=== PATIENT | female | born 1990 | race Caucasian/White ===

== ENCOUNTER 2019-08-05 15:22 | Emergency (ER) | payer MEDICAID, SELFPAY ==
[2019-08-05 15:31] VITALS: BP 116/81; PULSE 90; RESP 18; TEMP 36.9; O2SAT 100
--- NOTE | 2019-08-05 15:33 | ED.URI ---
HPI - URI/Sore Throat General Chief Complaint: Upper Respiratory Infection Stated Complaint: drainage/SCHMIDT/congestion Time Seen by Provider: 08/05/19 15:32 Source: patient and RN notes reviewed Mode of arrival: ambulatory Limitations: no limitations History of Present Illness HPI Narrative: 29-year-old female presents with concern for 1 week history of sinus pressure, sinus congestion. Reports she had sinus surgery at the end of June, was seen by her ENT approximately 2 weeks ago, he told her she could be developing an infection, did not put her on antibiotics that time; he told her to follow-up, reports she called and was unable to get an appointment. She reports facial pain, sinus pressure, headache reports taking Claritin and 3 days of Afrin with no relief. MD elicited complaint: nasal congestion Related Data Home Medications Medication Instructions Recorded Confirmed dextroamphetamine-amphetamine 10 mg PO BID 06/24/19 08/05/19 [Adderall] multivitamin 1 tablet PO DAILY 06/24/19 08/05/19 [id number] 50 See Rx Instructions PO Q4H PRN 08/01/19 08/05/19 mg-325 mg-40 mg tablet hydrocodone-acetaminophen 1 tablet Q4-6H PRN 08/05/19 08/05/19 ketorolac 10 mg BID 08/05/19 08/05/19 Allergies Allergy/AdvReac Type Severity Reaction Status Date / Time psyllium Allergy Mild Hives / Verified 07/08/19 09:07 Red Face Sulfa (Sulfonamide AdvReac Mild N/V Verified 07/08/19 10:57 Antibiotics) trimethoprim AdvReac Mild N/V Verified 07/08/19 10:57 Review of Systems Review of Systems: Narrative: CONSTITUTIONAL: Reports malaise. Denies chills, sweats, or fever. EYES: Denies visual changes, redness, or discharge. ENT: Reports rhinorrhea, congestion, sinus pain. Denies otalgia and sore throat. CARDIOVASCULAR: Denies chest pain, palpitations, or edema. RESPIRATORY: Denies cough dyspnea. GASTROINTESTINAL: Denies abdominal pain, nausea, vomiting, diarrhea SKIN: Denies rash or itching. MUSCULOSKELETAL: Denies myalgia. NEUROLOGIC: Reports headache. All systems reviewed & are unremarkable except as noted in HPI and below PMFSH Past Medical History Medical History (Updated 08/05/19 @ 15:41 by Kari Aquino NP) Anxiety Asthma Left ovarian cyst Migraine UTI (urinary tract infection) Surgical History Surgical History (Updated 07/22/19 @ 16:24 by Gala Skelton NP) H/O right wrist surgery H/O sinus surgery Previous section Social History Social History Smoking status: Current every day smoker Alcohol intake: unknown Gender identity (if verbalized by the patient): Female Comments At time of signature, agree with nursing past medical, surgical, social and family history. There is no relevant family history pertinent to the presenting complaint Exam Narrative: Exam Narrative: GENERAL: Well-appearing, well-nourished, and in no acute distress. HEAD: Normocephalic, atraumatic. EYES: PERRLA, conjunctivae clear, and EOMI. ENT: Nares clear, turbinates edematous and erythematous, sinus tenderness. Mucous membranes moist. TM pearly noriega with dull light reflex bilaterally; no tragal tenderness. Oropharynx erythematous without lesions. Tonsils not enlarged and without exudate, no drooling, no hoarseness, no trismus. NECK: Supple. No lymphadenopathy CHEST: Clear to auscultation, breath sounds equal. No wheezing, rhonchi, rales, or stridor. No respiratory distress, speaks in full sentences. HEART: Regular rate and rhythm. No murmur heard. Normal peripheral pulses. SKIN: Warm, dry, no rash. NEURO: Alert and oriented x3. PSYCH: Normal mood and affect Course Course Emergency Course: Patient is aware of diagnosis, understands and agrees to treatment plan. Anticipatory guidance given. Patient agrees to follow-up as directed and is aware of reasons to seek care at the emergency department. Portions of this record may have been created with [employer]
== END 2019-08-05 15:44 | disposition home or self-care (01) ==
PROVIDERS: Emergency Provider Nurse Practitioner
DX: J01.90 Acute sinusitis, unspecified (principal); J45.909 Unspecified asthma, uncomplicated
CPT/HCPCS: 99213; G0463

== ENCOUNTER 2021-01-06 17:07 | Outpatient (CLI) | payer OTHER, SELFPAY ==
[2021-01-06 18:01] LABS: Beta HCG Quantitative < 2.39 mIU/ML
== END 2021-01-06 17:08 | disposition home or self-care (01) ==
PROVIDERS: Visit Provider Obstetrics & Gynecology
DX: N92.6 Irregular menstruation, unspecified (principal)
CPT/HCPCS: 36415; 84702

== ENCOUNTER 2021-12-18 08:33 | Outpatient (CLI) | payer OTHER, SELFPAY ==
--- NOTE | ~2021-12-18 | MR_ITS ---
EXAMINATION: MR lumbar spine wo con DATE: 12/18/2021 09:14 INDICATION: M54.50 - Low back pain, unspecified . Fall down a flight of stairs one year ago. Three-mo nth history of low back pain radiating into the right leg with toe tingling. TECHNIQUE: Magnetic resonance imaging (MRI) of the lumbar spine was performed without intravenous con trast. Sequences included sagittal T2-weighted FSE, sagittal T2-weighted FS FSE, sagittal T1-weighted FSE, and axial T2-weighted FSE. COMPARISON: X-ray lumbar spine 10/18/2012. FINDINGS: The last fully formed and hydrated disc is designated L5-S1. The marrow signal is benign an d homogenous. Conus terminates at L1-2. Disc height loss and dehydration at L5-S1. The following disc levels are specifically discussed: T11-T12: The disc does not extend beyond the endplate margin. There is no facet joint osteoarthritis. There is no neural foraminal stenosis. There is no central canal stenosis. T12-L1: The disc does not extend beyond the endplate margin. There is no facet joint osteoarthritis. There is no neural foraminal stenosis. There is no central canal stenosis. L1-L2: The disc does not extend beyond the endplate margin. There is no facet joint osteoarthritis. T here is no neural foraminal stenosis. There is no central canal stenosis. L2-L3: The disc does not extend beyond the endplate margin. There is no facet joint osteoarthritis. T here is no neural foraminal stenosis. There is no central canal stenosis. L3-L4: The disc does not extend beyond the endplate margin. There is mild facet joint osteoarthritis. There is no neural foraminal stenosis. There is no central canal stenosis. L4-L5: The disc does not extend beyond the endplate margin. There is mild facet joint osteoarthritis. There is no neural foraminal stenosis. There is no central canal stenosis. L5-S1: Mild diffuse bulge with a superimposed 5 mm central/right paracentral extrusion that extends 3 mm inferiorly. There is mild facet joint osteoarthritis. There is no neural foraminal stenosis. Ther e is no central canal stenosis. IMPRESSION: 1. Moderate degenerative disc disease at L5-S1 with a 5 mm central/right paracentral extrusion. Reviewed, dictated and finalized at location K. IMPRESSION: 1. Moderate degenerative disc disease at L5-S1 with a 5 mm central/right parace ntral extrusion.
== END 2021-12-18 08:34 | disposition home or self-care (01) ==
PROVIDERS: PCP Family Medicine; Visit Provider Nurse Practitioner
DX: R20.0 Anesthesia of skin (principal); R20.2 Paresthesia of skin; M51.37 Other intervertebral disc degeneration, lumbosacral region
CPT/HCPCS: 72148

== ENCOUNTER 2022-01-06 16:07 | Outpatient (RCR) | payer OTHER, SELFPAY ==
--- NOTE | 2022-01-13 08:24 | PTOPEVAL ---
Thank you for referring Myriam Lanier to [facility].? The patient is scheduled to be seen for therapy? ____x/week for ___ weeks. Please review, sign, date and return this plan of care MARY. I agree with and certify that the following plan of care is medically necessary. Referring Physician Date Admitting Provider: Attending Provider: Ally Rankin NP Referring Provider: *PT Outpatient Evaluation Start: 01/06/22 15:46 Freq: Status: Active Protocol: Document 01/06/22 16:00 [facility] (Rec: 01/06/22 17:35 [facility] [id number]) Therapy Assessment Status Assessment Status Assessment Status Evaluation Outpatient Past Medical History Neurological History Hx Migraine Yes Cardiovascular History Hx Cardiac Disorders No Significant History Respiratory History Hx Asthma Yes: sports induced Gastrointestinal History Hx Gastroesophageal Reflux Disease Yes Genitourinary History Hx Genitourinary Disorders No Significant History Musculoskeletal History Hx Musculoskeletal Disorders No Significant History Hematological History Hx Hematological Disorders No Significant History Endocrine History Hx Endocrine Disorders No Significant History HEENT History Hx Sinus Problems Yes Integumentary History Hx Excision Skin Lesion Yes: CYST REMOVED FROM HAND Reproductive History Hx Section Yes Hx Other Reproductive Disorders Yes: ovarian cyst removed 2012 Psychosocial History Hx Anxiety Yes Pain History History of Any Previous or Ongoing No Significant History Instance of Pain Anesthesia History Hx Anesthesia Reactions No Significant History Evaluation Information Problem Diagnosis Lumbar Pain Onset 01/03/22 Additional Evaluation Detail Oswestry = 76% Functionally Declined Subjective Information Pt says that she works 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 She was prescribed Naproxen for her pain but that did not help . She says that she likes to lay on her back to decrease her pain when it flares up. She says the more that she walks, the more that her back feels better after sitting, but gets worse after walking more than about a mile. She also reports that
--- NOTE | 2022-03-07 16:50 | PCPTNOTE ---
Pt. attended at total of 2 treatment sessions from 01/06/22 to 01/13/22. She cancelled appointments on 01/11/22, 01/18/22, 01/20/22, and no showed on 01/25/22 and 01/27/22. Due to poor attendance the pt. will be discharged from our care. Refer to her last daily note for discharge status.
== END 2022-01-13 14:34 | disposition home or self-care (01) ==
LOC: CHSPT 16:07
PROVIDERS: Visit Provider Nurse Practitioner
DX: M51.36 Other intervertebral disc degeneration, lumbar region (principal)
CPT/HCPCS: 97012; 97014; 97110; 97161; G0283

== ENCOUNTER 2022-02-12 15:24 | Emergency (ER) | payer OTHER, SELFPAY ==
[2022-02-12 15:36] VITALS: BP 114/80; PULSE 100; RESP 18; TEMP 36.8; O2SAT 100
--- NOTE | 2022-02-12 16:13 | ED.GENADULT ---
HPI - General Adult General Chief complaint: Upper Respiratory Infection Stated complaint: chest and nasal congestion History of Present Illness HPI narrative: Patient is a 31-year-old female who presents to the [facility] care via POV for evaluation of a sinus problem that began approximately 12 days ago. Additionally, her symptoms began as cold symptoms such as cough, nasal drainage, and nasal congestion. Symptoms progressed into hoarseness, intermittent, frontal headaches that are pressure-like , and sinus pain. Benadryl Mucinex provides some relief. Nothing worsens symptoms. Of note, patient reports a chronic history of sinusitis. She has treatment failure with amoxicillin, Augmentin, and doxycycline per her report. Related Data Home Medications Medication Instructions Recorded Confirmed albuterol sulfate 90 mcg/actuation 90 mcg inhalation DIRECTED 02/12/22 02/12/22 aerosol inhaler alprazolam 1 mg tablet 1 mg DAILY 02/12/22 02/12/22 azelastine 137 mcg (0.1 %) nasal 137 mcg intranasal DIRECTED 02/12/22 02/12/22 spray aerosol kczaldoxdp-bcxdxkgbylttq-oppwtmaq 1 tablet DAILY 02/12/22 02/12/22 50 mg-325 mg-40 mg tablet dextroamphetamine-amphetamine 10 10 mg BID 02/12/22 02/12/22 mg tablet erenumab-aooe 70 mg/mL 70 mg subcut DIRECTED 02/12/22 02/12/22 subcutaneous auto-injector (Aimovig Autoinjector) fluticasone propionate 50 1 mcg intranasal DAILY 02/12/22 02/12/22 mcg/actuation nasal spray,suspension gabapentin 300 mg capsule 300 mg TID 02/12/22 02/12/22 hydrocodone 5 mg-acetaminophen 325 1 tablet DIRECTED 02/12/22 02/12/22 mg tablet naproxen 500 mg tablet 500 mg DIRECTED 02/12/22 02/12/22 norethindrone (contraceptive) 0.35 0.35 mg DAILY 02/12/22 02/12/22 mg tablet (Jencycla) valacyclovir 500 mg tablet 500 mg BID 02/12/22 02/12/22 Allergies Allergy/AdvReac Type Severity Reaction Status Date / Time psyllium Allergy Mild Hives / Verified 02/12/22 15:51 Red Face Sulfa (Sulfonamide AdvReac Mild N/V Verified 02/12/22 15:51 Antibiotics) trimethoprim AdvReac Mild N/V Verified 02/12/22 15:51 Review of Systems Review of Systems: Denies history of COPD, bronchitis, asthma, and pneumonia. Denies current/past tobacco use. Pertinent negatives: fever, sweats, chills, change in appetite, fatigue, skin color changes, severe persistent headache, dizziness, lymphadenopathy,, ear pain/drainage, chest pain, heart murmurs, heart palpitations, shortness of breath, wheezing, cyanosis, hemoptysis, orthopnea, pleuritic pain, nausea, vomiting, diarrhea, and myalgias. 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 Manuel Linares History of gynecological procedure (10/27/20) mirena iud removal Hx of ovarian cystectomy (06/11/20) laparoscopic left cystectomy ; Left adnexal mass, adhesions; (L) at [facility] 06/2020 c/o Zachariah Marcial MD Previous section (07/14/10) primary c/s hsv outbreak Family History Family History Father Hypertension Diabetes mellitus Grandparent Cerebrovascular accident maternal grandfather Stomach cancer maternal grandmother Social History Social History Smoking status: Never smoker Alcohol intake: unknown Substance use: never Gender identity (if verbalized by the patient): Female Spiritual care concerns: No Comments I have reviewed and agree with the patient's pas
== END 2022-02-12 16:32 | disposition home or self-care (01) ==
PROVIDERS: Emergency Provider Nurse Practitioner Family; PCP Nurse Practitioner
DX: J01.90 Acute sinusitis, unspecified (principal); J45.909 Unspecified asthma, uncomplicated; K21.9 Gastro-esophageal reflux disease without esophagitis; F41.9 Anxiety disorder, unspecified; Z86.16 Personal history of COVID-19
CPT/HCPCS: 99213; G0463

== ENCOUNTER 2022-03-16 20:35 | Emergency (ER) | payer OTHER, SELFPAY ==
--- NOTE | ~2022-03-16 | CT_ITS ---
EXAMINATION: CT abdomen pelvis wo con DATE: 03/16/2022 23:21 INDICATION: Right lower quadrant abdominal pain. Nausea. TECHNIQUE: Computed tomography (CT) of the abdomen and pelvis was performed without intravenous contr ast. Automated exposure control and iterative reconstruction technique were employed. The dose-length product was 276.13 mGy-cm. COMPARISON: None. FINDINGS: The visualized portions of the lung bases demonstrate minimal atelectasis on the right. No pleural effusion. The heart size is normal. No pericardial effusion. The liver and gallbladder are no rmal. Calcifications in the spleen are consistent with old granulomatous disease. The pancreas, adren al glands, and kidneys are normal. There is no urolithiasis. There is a 4.8 cm cyst in right ovary. T here are no dilated loops of bowel. The appendix is normal. There are no pathologically enlarged lymp h nodes. There is no free intraperitoneal fluid. There is mild lumbar spondylosis. IMPRESSION: 1. 4.8 cm cyst in right ovary, likely a follicular cyst. Consider ultrasound. Reviewed, dictated and finalized at location A.
[2022-03-16 21:15] VITALS: BP 139/98; PULSE 98; RESP 18; TEMP 36.6; O2SAT 100
[2022-03-16 23:05] LABS: Basophils Absolute Auto 0.07 K/mm3 (0.00-0.10); Basophils Percent Auto 0.8 % (0.0-1.0); Eosinophils Absolute Auto 0.25 K/mm3 (0.02-0.50); Eosinophils Percent Auto 2.9 % (1.0-6.0); Hematocrit 37.2 % (35.0-49.0); Hemoglobin 12.7 g/dL (12.0-15.0); Immature Granulocyte Absolute 0.03 K/mm3 (0.00-0.00); Immature Granulocyte Percent A 0.3 % (0.0-0.0); Lymphocytes Absolute Auto 2.31 K/mm3 (1.10-4.50); Lymphocytes Percent Auto 26.4 % (18.0-42.0); Mean Corpuscular HGB Conc 34.1 g/dL (32.0-36.0); Mean Corpuscular Hemoglobin 31.5 pg (27.0-31.0); Mean Corpuscular Volume 92.3 fL (78.0-102.0); Mean Platelet Volume 9.8 fl (9.2-11.8); Monocytes Absolute Auto 0.79 K/mm3 (0.10-0.90); Neutrophils Absolute Auto 5.3 K/mm3 (1.7-7.2); Neutrophils Percent Auto 60.6 % (50.0-70.0); Platelet Count Result 253 K/mm3 (150-420); Red Blood Count 4.03 M/mm3 (4.20-5.40); Red Cell Distribution Width 12.2 % (11.6-14.4); White Blood Count 8.8 K/mm3 (4.8-10.8)
[2022-03-16 23:07] LABS: Add Urine Microscopic? NO; Appearance Urine Clear (Clear); Bilirubin Urine Negative (Negative); Blood Urine Negative (Negative); Color Urine Light Yellow (Yellow); Glucose Urine UA Negative (Negative); Ketones Urine Negative (Negative); Leukocyte Esterase Ur Negative LEU/UL (Negative); Nitrate Urine Negative (Negative); Protein Urine Negative (Negative); Specific Grav Ur <= 1.005 (1.010-1.020); Urobilinogen Urine 0.2 mg/dL (0.2-1.0)
[2022-03-16 23:11] LABS: SPREG INTERNAL CONTROL Positive; Serum Qual hCG Negative
[2022-03-16 23:21] LABS: Alanine Aminotransferase 21 U/L (14-59); Albumin Level 3.9 g/dL (3.4-5.0); Alkaline Phosphatase 57 U/L (46-116); Anion Gap 8 mmol/L (8-16); Aspartate Amino Transferase 16 U/L (15-37); Bilirubin,Total 0.1 mg/dL (0.00-1.00); Blood Urea Nitrogen 8 mg/dL (7-18); Carbon Dioxide 25 mmol/L (21-32); Chloride 104 mmol/L (98-108); Estimated CRCL calculation 78 ml/min; Estimated Glomerular Filt Rate > 60; Glucose 85 mg/dL (70-99); Lipase 97 U/L (73-393); Osmolality Calculated 281 mOsm/kg (285-295); Potassium 3.8 mmol/L (3.5-5.1); Sodium 137 mmol/L (136-145); Total Protein 7.1 g/dL (6.4-8.2)
[2022-03-16 23:26] LABS: Lactic Acid Reflex 0.9 mmol/L (0.4-2.0)
[2022-03-16] MEDS: ONDANSETRON INJ 4 MG/2 ML VIAL IV PUSH (23:33)
[2022-03-16] MEDS: PANTOPRAZOLE SODIUM IV 40 MG VIAL IV PUSH (23:33)
[2022-03-16] MEDS: SODIUM CHLORIDE 0.9% IV 1,000 ML 999 ML IV CONT (23:33)
[2022-03-16] MEDS: KETOROLAC (*BKC) 60 MG/2 ML VIAL IM (23:33)
--- NOTE | 2022-03-17 00:38 | ED.ABDPAIN ---
HPI - Abdominal Pain General Chief Complaint: Abdominal Pain Stated Complaint: pain started Mon;called dr today;poss appendicitis Time Seen by Provider: 03/16/22 20:39 Source: patient and RN notes reviewed Mode of arrival: ambulatory Limitations: no limitations History of Present Illness MD elicited complaint: abdominal pain Onset (ago): day(s) (2) Pain Consistency: constant Location: suprapubic and pelvis Severity: moderate Pain scale (0-10): 7 Quality: cramping, aching and dull Radiation: none Migration to: no migration Exacerbating factors: nothing Relieving factors: medication Related Data Patient : No Home Medications Medication Instructions Recorded Confirmed albuterol sulfate 90 mcg/actuation 90 mcg inhalation DIRECTED 02/12/22 03/17/22 aerosol inhaler azelastine 137 mcg (0.1 %) nasal 137 mcg intranasal DIRECTED 02/12/22 03/17/22 spray aerosol nbidfelqfo-tghqghkswaovk-ivesyvgd 1 tablet DAILY 02/12/22 03/17/22 50 mg-325 mg-40 mg tablet erenumab-aooe 70 mg/mL 70 mg subcut DIRECTED 02/12/22 03/17/22 subcutaneous auto-injector (Aimovig Autoinjector) fluticasone propionate 50 1 mcg intranasal DAILY 02/12/22 03/17/22 mcg/actuation nasal spray,suspension gabapentin 300 mg capsule 300 mg TID 02/12/22 03/17/22 naproxen 500 mg tablet 500 mg DIRECTED 02/12/22 03/17/22 norethindrone (contraceptive) 0.35 0.35 mg DAILY 02/12/22 03/17/22 mg tablet (Jencycla) valacyclovir 500 mg tablet 500 mg BID 02/12/22 03/17/22 Allergies Allergy/AdvReac Type Severity Reaction Status Date / Time psyllium Allergy Mild Hives / Verified 03/17/22 09:31 Red Face Sulfa (Sulfonamide AdvReac Mild N/V Verified 03/17/22 09:31 Antibiotics) trimethoprim AdvReac Mild N/V Verified 03/17/22 09:31 Review of Systems Review of Systems: All systems reviewed & are unremarkable except as noted in HPI and below Constitutional: Constitutional: Reports no additional constitutional complaints Eyes: Eyes: Reports no additional eye complaints ENT: Reports system reviewed and no additional complaints, except as documented Cardiovascular: Cardiovascular: Reports no additional cardiovascular complaints Respiratory: Respiratory: Reports no additional respiratory complaints Gastrointestinal: Gastrointestinal: Reports abdominal pain Genitourinary: Genitourinary: Reports no additional female genitourinary complaints Musculoskeletal: Musculoskeletal: Reports no additional musculoskeletal complaints Integumentary/Breasts: Skin/Breast: Reports system reviewed and no additional complaints, except as docu Neurologic: Reports system reviewed and no additional complaints, except as documented Psychiatric: Psychiatric: Reports no additional psychiatric complaints Endocrine: Endocrine: Reports no additional endocrine complaints Hematologic/Lymphatic: Hematologic/Lymphatic: Reports no additional hematologic/lymphatic complaints Allergic/Immunologic: Allergic/Immunologic: Reports no additional allergic/immunologic complaints PMFSH Past Medical History Medical History Abdominal pain Anxiety Asthma Attention deficit disorder (ADD) in adult COVID-19 GERD (gastroesophageal reflux disease) Herniated disc 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 Manuel Linares History of gynecological procedure (10/27/20) mirena iud removal Hx of ovarian cystectomy (06/11/20) laparoscopic left cystectomy ; Left adnexal mass, adhesions; (L) at [facility] 06/2020 c/o Zachariah Marcial MD Previous section (07/14/10) primary c/s hsv outbreak Family History Family History (Reviewed 03/21/22 @ 01:08 by Dereck Hauser
[2022-03-17 01:07] VITALS: BP 128/70; PULSE 88; RESP 18; O2SAT 98
== END 2022-03-17 01:08 | disposition home or self-care (01) ==
PROVIDERS: Emergency Provider Emergency Medicine; PCP Family Medicine
DX: R10.9 Unspecified abdominal pain (principal); N83.201 Unspecified ovarian cyst, right side
CPT/HCPCS: 36415; 74176; 80053; 81003; 83605; 83690; 84703; 85025; 96361; 96372; 96374; 96375; 99284; C9113; J1885; J2405; J7030

== ENCOUNTER 2022-05-03 08:25 | Emergency (ER) | payer OTHER, SELFPAY ==
[2022-05-03 08:34] VITALS: BP 112/72; PULSE 94; RESP 18; TEMP 36.6; O2SAT 100
[2022-05-03 08:35] VITALS: BP 112/72; PULSE 94; RESP 16; TEMP 36.6; O2SAT 100
[2022-05-03 09:12] LABS: Strep Group A RT-PCR Positive (Negative)
--- NOTE | 2022-05-03 09:30 | ED.URI ---
HPI - URI/Sore Throat General Chief Complaint: Unspecified Stated Complaint: throat pain possible strep Time Seen by Provider: 05/03/22 09:29 Source: patient and RN notes reviewed Mode of arrival: ambulatory Limitations: no limitations History of Present Illness MD elicited complaint: fever and sore throat Onset (ago): day(s) (5) Consistency: constant Severity: moderate Able to tolerate fluids by mouth: Yes Exacerbating factors: swallowing Relieving factors: nothing Context: sick contacts Associated symptoms: fever, chills, voice changes and nausea Treatments prior to arrival: none Related Data Allergies Allergy/AdvReac Type Severity Reaction Status Date / Time psyllium Allergy Mild Hives / Verified 05/03/22 08:56 Red Face Sulfa (Sulfonamide AdvReac Mild N/V Verified 05/03/22 08:56 Antibiotics) trimethoprim AdvReac Mild N/V Verified 05/03/22 08:56 Review of Systems Review of Systems: All systems reviewed & are unremarkable except as noted in HPI and below PMFSH Past Medical History Medical History Abdominal pain Anxiety Asthma Attention deficit disorder (ADD) in adult COVID-19 GERD (gastroesophageal reflux disease) Herniated disc 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 Manuel Linares History of gynecological procedure (10/27/20) mirena iud removal Hx of ovarian cystectomy (06/11/20) laparoscopic left cystectomy ; Left adnexal mass, adhesions; (L) at [facility] 06/2020 c/o Zachariah Marcial MD Previous section (07/14/10) primary c/s hsv outbreak Family History Family History Father Hypertension Diabetes mellitus Grandparent Cerebrovascular accident maternal grandfather Stomach cancer maternal grandmother Social History Social History Smoking status: Never smoker Alcohol intake: current Alcohol use details: 6 month Substance use: never Substance use type: does not use Additional living arrangements comments: 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 HENMT: Head: normal to inspection Ears: external ears normal Face/Nose/Sinus: Normal external nose present Face and sinus: normal facial exam Mouth: Yes moist mucous membranes Throat: uvula midline and abnormal tonsil bilateral erythema, exudates and hypertrophy Eyes: Conjunctivae: conjunctivae normal Pupils: Equal, round and reactive pupils present EOM: EOMs intact bilaterally Neck: Neck: normal visual inspection and lymphadenopathy ( Tender anterior cervical bilateral) Chest: Chest palpation & inspection: normal inspection of the chest Resp: Effort & Inspection: normal respiratory effort Auscultation: clear to auscultation bilaterally Cardio: Rate: regular rate Rhythm: regular rhythm GI: GI Palp: Yes Soft to palpation and No Tenderness to palpation present (GI) Auscultation: normal bowel sounds Back/Spine/Pelvis: Cervical Spine: cervical ROM normal Thoracic/Lumbar Spine: Thoracic/lumbar spine scar(s) Skin: General skin exam: normal color Rashes: no rashes Neuro: General: patient oriented x3, moves all extremities, no focal motor deficits and CN's II-XI intact bilaterally S
--- NOTE | 2022-05-03 09:33 | PC.NURSE ---
rn at bedside for chaperoned physical exam
[2022-05-03 09:43] VITALS: BP 112/72; PULSE 94; RESP 16; TEMP 36.6; O2SAT 100
== END 2022-05-03 09:45 | disposition home or self-care (01) ==
PROVIDERS: Emergency Provider Emergency Medicine; PCP Family Medicine
DX: J02.0 Streptococcal pharyngitis (principal)
CPT/HCPCS: 87651; 99283

== ENCOUNTER 2022-09-15 19:27 | Emergency (ER) | payer OTHER, SELFPAY ==
--- NOTE | 2022-09-15 19:40 | ED.URI ---
HPI - URI/Sore Throat General Chief Complaint: Upper Respiratory Infection Stated Complaint: Body Aches,Sore Throat Time Seen by Provider: 09/15/22 19:40 Source: patient Mode of arrival: ambulatory Limitations: no limitations History of Present Illness HPI Narrative: 32-year-old female presents with complaint of sore throat for the past several days. Was seen by her primary care physician 3 days ago and had a positive strep test. Was given amoxicillin. Reports that is causing her to have an upset stomach and nausea. Is taking Zofran with medication but is not helping. States she has had similar problems in the past when taking amoxicillin. She is requesting a Z-Darrion. She has had no recent fevers. No difficulty swallowing. Well-appearing. All systems reviewed and negative except as noted above. Related Data Allergies Allergy/AdvReac Type Severity Reaction Status Date / Time psyllium Allergy Mild Hives / Verified 09/15/22 19:39 Red Face Sulfa (Sulfonamide AdvReac Mild N/V Verified 09/15/22 19:39 Antibiotics) trimethoprim AdvReac Mild N/V Verified 09/15/22 19:39 Review of Systems Review of Systems: CONSTITUTIONAL: Denies fever, chills, or sweats. EYES: Denies visual changes, redness, or discharge. ENT: Denies rhinorrhea, congestion reports sore throat. Denies otalgia. CARDIOVASCULAR: Denies chest pain, palpitations, or edema. RESPIRATORY: Denies cough or dyspnea. GASTROINTESTINAL: Denies abdominal pain, nausea, vomiting, or diarrhea. GENITOURINARY: Denies dysuria or hematuria. SKIN: Denies rash or itching. MUSCULOSKELETAL: Denies back pain, joint pain, or myalgia. NEUROLOGIC: Denies headache, numbness, or weakness. PSYCHIATRIC: Denies anxiety or depression. All other systems reviewed are negative, except as documented in HPI. 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 Manuel Linares History of gynecological procedure (10/27/20) mirena iud removal Hx of ovarian cystectomy (06/11/20) laparoscopic left cystectomy ; Left adnexal mass, adhesions; (L) at [facility] 06/2020 c/o Zachariah Marcial MD Previous section (07/14/10) primary c/s hsv outbreak Family History Family History Father Hypertension Diabetes mellitus Grandparent Cerebrovascular accident maternal grandfather Stomach cancer maternal grandmother Social History Social History Smoking status: Never smoker Alcohol intake: current Alcohol use details: 6 month Substance use: never Substance use type: does not use Living arrangements: other Additional living arrangements comments: Occupation/Education: occupation 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 There is no relevant family history pertinent to the presenting complaint. Exam Narrative: GENERAL: This is a well-nourished, well-developed patient, in no apparent distress. HEAD: normocephalic, atraumatic. EYES: PERRL. Sclera clear/white. Vision is grossly intact. EARS: External ears normal, auditory canals clear and without drainage, TMs normal without perforation. Hearin
[2022-09-15 19:44] VITALS: BP 121/69; PULSE 75; RESP 16; TEMP 36.4; O2SAT 100
== END 2022-09-15 20:11 | disposition home or self-care (01) ==
PROVIDERS: Emergency Provider Nurse Practitioner Family; PCP Family Medicine
DX: J02.0 Streptococcal pharyngitis (principal); J45.909 Unspecified asthma, uncomplicated; K21.9 Gastro-esophageal reflux disease without esophagitis; Z86.16 Personal history of COVID-19; F41.9 Anxiety disorder, unspecified; F98.8 Other specified behavioral and emotional disorders with onset usually occurring in childhood and adolescence
CPT/HCPCS: 99213; G0463

== ENCOUNTER → 2023-02-09 08:40 | Outpatient (CLI) | payer OTHER, SELFPAY ==
--- NOTE | ~2023-02-09 | US_ITS ---
Pelvic ultrasound. Clinical History: Amenorrhea Technique: Realtime transabdominal and transvaginal scanning of the pelvis was performed. Color flow Doppler and Doppler spectral analysis were performed. Findings: The uterus is anteverted. The endometrial stripe has a thickness of 10 mm. No focal mass i s identified. The right ovary measures 2.1 x 2.8 x 4.0 cm. No significant right ovarian or adnexal mass is seen. The left ovary measures 2.8 x 2.0 x 2.4 cm. No significant left ovarian or adnexal mass is seen. Vascular flow present in both ovaries on Doppler spectral analysis. There is no evidence of free fluid in the cul de sac. Impression: Unremarkable pelvic ultrasound. Reviewed, dictated and finalized at [facility]. Impression: Unremarkable pelvic ultrasound.
== END ==
PROVIDERS: PCP Student in an Organized Health Care Education/Training Program; Visit Provider Student in an Organized Health Care Education/Training Program
DX: N91.2 Amenorrhea, unspecified (principal); R10.2 Pelvic and perineal pain
CPT/HCPCS: 76830; 76856

== ENCOUNTER 2024-02-06 11:03 | Outpatient (CLI) | payer OTHER, SELFPAY ==
[2024-02-06 18:47] LABS: Alanine Aminotransferase 26 U/L (6-35); Albumin Level 4.6 g/dL (3.5-5.1); Alkaline Phosphatase 54 U/L (38-126); Anion Gap 12 mmol/L (4-12); Aspartate Amino Transferase 45 U/L (14-36); Bilirubin,Total 0.3 mg/dL (0.2-1.3); Blood Urea Nitrogen 31 mg/dL (7-17); Calcium 9.3 mg/dL (8.4-10.2); Carbon Dioxide 28 mmol/L (22-30); Chloride 98 mmol/L (98-107); Cholesterol 145 mg/dL (0-200); Estimated Glomerular Filt Rate > 60; Glucose 102 mg/dL (65-110); HDL Direct 75 mg/dL; Potassium 4.3 mmol/L (3.4-5.0); Sodium 138 mmol/L (137-145); Triglycerides 60 mg/dL (<150)
[2024-02-06 18:58] LABS: LDL Cholesterol Direct 49 mg/dL
[2024-02-06 19:17] LABS: Hematocrit 39.7 % (37.0-47.0); Mean Corpuscular HGB Conc 32.7 g/dl (32-36); Mean Corpuscular Hemoglobin 31.8 pg (26-34); Mean Corpuscular Volume 97.1 fl (80-100); Mean Platelet Volume 10.6 fl (7.4-10.4); Platelet Count Result 277 k/mm3 (150-375); Red Blood Count 4.09 M/mm3 (4.2-5.4); Red Cell Distribution Width 12.3 % (11.5-14.5)
[2024-02-06 19:32] LABS: Vitamin D 25 Hydroxy 89.6 ng/mL
[2024-02-07 22:28] LABS: Amphetamines NEGATIVE ng/mL (<500); Barbiturates POSITIVE ng/mL (<300); Benzodiazepines NEGATIVE ng/mL (<100); Cocaine Metabolite NEGATIVE ng/mL (<150); Marijuana Metabolite NEGATIVE ng/mL (<20); Methadone Metabolite NEGATIVE ng/mL (<100); Opiates POSITIVE ng/mL (<100); Oxidant NEGATIVE mcg/mL (<200); Specific Gravity 1.006 (> or = 1.003); pH 7.6 (4.5-9.0)
== END 2024-02-06 11:04 | disposition home or self-care (01) ==
LOC: ANHGOSHLAB 11:04
PROVIDERS: PCP Family Medicine; Visit Provider Family Medicine
DX: F41.9 Anxiety disorder, unspecified (principal); F51.04 Psychophysiologic insomnia; F98.8 Other specified behavioral and emotional disorders with onset usually occurring in childhood and adolescence; G43.909 Migraine, unspecified, not intractable, without status migrainosus; J45.909 Unspecified asthma, uncomplicated; K21.9 Gastro-esophageal reflux disease without esophagitis; M54.50 Low back pain, unspecified; N91.2 Amenorrhea, unspecified
CPT/HCPCS: 36415; 80053; 80061; 80307; 82306; 82607; 84443; 85027

== ENCOUNTER 2024-04-01 17:37 | Emergency (ER) | payer OTHER, SELFPAY ==
[2024-04-01 17:47] VITALS: BP 109/69; PULSE 84; RESP 18; TEMP 36.8; O2SAT 100
--- NOTE | 2024-04-01 18:16 | ED.URI ---
HPI - URI/Sore Throat General Chief Complaint: Upper Respiratory Infection Stated Complaint: congestion, cough, sore throat Time Seen by Provider: 04/01/24 17:51 Source: patient, RN notes reviewed and old records reviewed Mode of arrival: ambulatory Limitations: no limitations History of Present Illness HPI Narrative: Patient presents today complaining of 6 day history of headache, sore throat, nausea, cough, nasal congestion. States she lost her voice yesterday, and today her ears are clogged. Denies fever shortness of breath. Currently rates her pain 8/10 and has been taking ibuprofen and Tylenol without much relief. Denies shortness of breath or difficulty swallowing. Daughter presents with her with similar symptoms. History of chronic sinusitis with previous sinus surgeries. Related Data Home Medications Medication Instructions Recorded Confirmed fluticasone propionate 50 intranasal PRN 08/10/23 08/10/23 mcg/actuation nasal spray,suspension Allergies Allergy/AdvReac Type Severity Reaction Status Date / Time psyllium Allergy Mild Hives / Verified 04/01/24 17:56 Red Face Sulfa (Sulfonamide AdvReac Mild N/V Verified 04/01/24 17:56 Antibiotics) trimethoprim AdvReac Mild N/V Verified 04/01/24 17:56 Review of Systems Review of Systems: CONSTITUTIONAL: Denies body aches, fever, chills, or sweats. EYES: Denies visual changes, redness, or discharge. ENT: Denies rhinorrhea. + congestion, sore throat, ear clogging, hoarseness CARDIOVASCULAR: Denies chest pain, palpitations, or edema. RESPIRATORY: Denies dyspnea.+ cough GASTROINTESTINAL: Denies abdominal pain, vomiting, or diarrhea.+ nausea GENITOURINARY: Denies dysuria or hematuria. SKIN: Denies rash, itching, or wounds. MUSCULOSKELETAL: Denies back pain, joint pain, or myalgia. NEUROLOGIC: Denies numbness, tingling, or weakness.+ headache PSYCH: Denies depression or anxiety. 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 Manuel Linares History of gynecological procedure (10/27/20) mirena iud removal Hx of ovarian cystectomy (06/11/20) laparoscopic left cystectomy ; Left adnexal mass, adhesions; (L) at [facility] 06/2020 c/o Zachariah Marcial MD Previous section (07/14/10) primary c/s hsv outbreak Family History Family History Father Hypertension Diabetes mellitus Thyroid disorder Grandparent Cerebrovascular accident maternal grandfather Stomach cancer maternal grandmother Hypertension Heart problem Mother Depression Anxiety Daughter Asthma Grandparent Cerebrovascular accident Social History Social History Smoking status: Never smoker Alcohol intake: current Alcohol use details: Beer 1-3x a month Substance use: never Substance use type: does not use Lack of Transportation: No Lack of Food: Never True Current Housing: I Have Housing Concerned About Future Housing: No Difficulty Paying Gas/Electric Bills: No Difficulty Paying for Meds: No Currently Unemployed: No Education: Trade/Vocational Certificate Difficulty w/ Childcare or Family Care: No Living arrangements: other Additional living arrangements comments: Occupation/Education: occupation Additional occupation/education comments: insurance writer Gender identity (if verbal
[2024-04-01 18:51] LABS: EDSTREPNEGPOS1 Negative (Negative)
== END 2024-04-01 18:40 | disposition home or self-care (01) ==
PROVIDERS: Emergency Provider Nurse Practitioner; PCP Family Medicine
DX: J01.90 Acute sinusitis, unspecified (principal); J45.909 Unspecified asthma, uncomplicated; K21.9 Gastro-esophageal reflux disease without esophagitis; Z86.16 Personal history of COVID-19
CPT/HCPCS: 87081; 87880; 99213; G0463

== ENCOUNTER 2025-02-08 10:20 | Emergency (ER) | payer OTHER, SELFPAY ==
--- OUTSIDE RECORDS SUMMARY | 2025-02-08 10:29 | XMS_ITS | Clinical Summary ---
Author Organization [facility] Address [address] [place] [address] Care Team Providers Care Visiting Teacher Name Role Phone Guero Bill DO Primary Care Provider Source Comments [facility],non-owned Affiliates and Associated Physician Practices is amultiple site organization consisting of ambulatory clinics and hospital sitesin [place], [place], [place] and [place]. This disclosure is being madepursuant to the Care Everywhere program and may not contain all information available regarding this patient. Last updated 18.[facility] Allergies Active Allergy Reactions Criticality Noted Date Comments Metamucil Urticaria Medium 03/23/2016 Medications * Be aware that medications may not be up to date on this document. Alwaysverify current medications with the patient. valACYclovir (VALTREX) 500 MG tablet Take 500 mg by mouth 2 times daily Active Vit-Fe Fumarate-FA ( VITAMIN) 28-0.8 MG tablet Take 1 Tab by mouth once daily Active Sennosides (MP SENALAX PO) Active docusate sodium (COLACE) 100 MG capsule Take 1 Cap by mouth 2 times daily 60 Cap 2 6 Active Additional Information Patient not taking.Reported on 06/08/2017 butalbital-acet aminophen-caffe ine (FIORICET) 50-325-40 MG tablet Take 1 tablet by mouth as needed 6 Active albuterol HFA (PROVENTIL;VENT BERNARDINO;PROAIR) 108 (90 BASE) MCG/ACT inhaler Inhale 2 puffs by mouth as needed Active ondansetron, disintegrating, (ZOFRAN ODT) 8 MG tablet Take 8 mg by mouth every 8 hours 0 7 Active SUMAtriptan (IMITREX) 100 MG tablet Take 100 mg by mouth as needed 2 7 Active topiramate (TOPAMAX) 25 MG tablet Take 25 mg by mouth 2 times daily 2 7 Active ketorolac (TORADOL) 10 MG tablet Take 10 mg by mouth as needed 0 7 Active Active Problems Problem Noted Date Diagnosed Date Herpes genitalis 06/08/2017 (vaginal after ) 05/05/2016 Encounter for visit 05/05/2016 Supervision of high risk in [facility] 03/16/2016 History of delivery 01/14/2016 state Immunizations Immunization Administration Dates Next Due TDAP (7yrs+) 03/25/2016 Family History Medical History Relation Name Comments Diabetes Father Diabetes Maternal Grandfather Heart Failure Maternal Grandfather Stroke Maternal Grandfather Cancer Maternal Grandmother breast and stomach Diabetes Paternal Grandfather Heart Failure Paternal Grandfather Stroke Paternal Grandfather Relation Name Status Comments Father Alive Maternal Grandfather Maternal Grandmother Mother Alive Paternal Grandfather Paternal Grandmother Alive Social History Tobacco Use Types Packs/Day Years Used Date Smoking Tobacco: Former Smokeless Tobacco: Never Tobacco Cessation:Counseling Given: No Alcohol Use Standard Drinks/Week Comments No 0 (1 standard drink = 0.6 oz pur e alcohol) Comments No Sex and Gender Information Value Date Recorded Sex Assigned at Not on file Legal Sex Female 9:58 AM CDT Gender Identity Not on file Sexual Orientation Not on file Last Filed Vital Signs Vital Sign Reading Time Taken Comments Blood Pressure 126/82 06/08/2017 12:47 PM EMPLOYMENT INTERVIEWER Pulse 107 06/08/2017 12:47 PM EMPLOYMENT INTERVIEWER Temperature 36.8 C (98.2 F) 06/08/2017 12:47 PM EMPLOYMENT INTERVIEWER Respiratory Rate 18 06/08/2017 12:47 PM EMPLOYMENT INTERVIEWER Oxygen Saturation 100% 06/08/2017 12:47 PM EMPLOYMENT INTERVIEWER Inhaled Oxygen Concentration - - Weight 63.5 kg (140 lb) 06/08/2017 12:47 PM EMPLOYMENT INTERVIEWER Height 165.1 cm (5' 5) 06/08/2017 12:47 PM EMPLOYMENT INTERVIEWER Body Mass Index 23.3 06/08/2017 12:47 PM EMPLOYMENT INTERVIEWER Plan of Treatment Health Maintenance Due Date Last Done Comments HIV SCREENING 2006 HEPATITIS C SCREENING 06/02/2009 HEPATITIS B VACCINE (1 of 3 - 19+ 3-dose series) 2010 HPV VACCINE (1 - 3-dose SCDM series) 2018 COVID-19 VACCINE ( - 2023-2 5 season) 2024 DEPRESSION SCREENING 07/10/2024 INFLUENZA VACCINE (#1) 2025 DTAP/TDAP/TD VACCINES (2 - T d or Tdap) 03/25/2026 03/25/2016 ZOSTER VACCINE (1 of 2) 2041 HIB VACCINE Aged Out No longer eligi ble based on patient's age to complete this topic MENINGOCOCCAL (Group B) VACC INE SHARED DECISION-MAKING Aged Out No longer eligibl e based on patient's age to complete this topic MENINGOCOCCAL GROUPS A/C/Y/W VACCINE Aged Out No longer eligible b ased on patient's age to complete this topic PNEUMOCOCCAL VACCINE Aged Out No long er eligible based on patient's age to complete this topic Insurance [employer] [facility] Advance Directives * Full Code (Latest Code Status on File) Date Activated Date Inactivated Comments 03/23/2016 11:12 AM 03/26/2016 1:33 PM * Full Code Date Activated Date Inactivated Comments 03/23/2016 10:09 AM 03/23/2016 11:12 AM Care Teams Visiting Teacher Relationship Specialty Start Date End Date Guero Bill DO PCP - General 06/19/19
--- OUTSIDE RECORDS SUMMARY | 2025-02-08 10:29 | XMS_ITS | Clinical Summary ---
Author Organization [facility] Address [address] [place] [address] Care Team Providers Care Special Procedure Tech Name Role Phone Claude Bangura MD Primary Care Provider [phone] Allergies Active Allergy Reactions Criticality Noted Date Comments Psyllium Itching Medium 03/23/2016 Medications ALPRAZolam 0.5 MG tablet Take 0.5 mg by mouth 2 (two) times a day. 2 9 Active amphetamine-dex troamphetamine 10 MG tablet Take 1 tablet by mouth 2 (two) times daily. 0 9 Active SUMAtriptan 100 MG tablet Take 100 mg by mouth daily as needed. 2 9 Active valACYclovir 500 MG tablet Take 500 mg by mouth daily. 9 Active fluticasone propionate (FLONASE) 50 MCG/ACT nasal spray 1 spray by Nasal route daily. 16 g 9 Active guaiFENesin-cod eine (GUAIFENESIN AC) 100-10 MG/5ML syrupIndication s:Cough Take 5 mLs by mouth every 4 (four) hours as needed for Cough. Indications: Cough 120 mL 5 Active naloxone (NARCAN) 4 MG/0.1ML nasal spray 1 spray by Nasal route as needed for Opioid reversal. may repeat every 2 to 3 minutes in alternating nostrils until medical assistance becomes available 1 each 5 07/11/19 26 Active Active Problems Problem Noted Date Diagnosed Date state ([facility]) 02/05/2019 Herpes genitalis 06/08/2017 (vaginal after ) ([facility]) [facility]counter for visit ([facility]) 016 Supervision of high risk pre gnancy in third trimester ([facility]) 03/16/2016 History of delivery 01/14/2016 Immunizations Immunization Administration Dates Next Due Tdap (Generic) 03/25/2016 Family History Medical History Relation Comments Diabetes Father Relation Status Comments Father Social History Tobacco Use Types Packs/Day Years Used Date Smoking Tobacco: Some Days Smokeless Tobacco: Never Alcohol Use Standard Drinks/Week Comments Yes 0 (1 standard drink = 0.6 oz pur e alcohol) occasional AUDIT-C Answer Date Recorded Frequency of Alcohol Consumption Never 02/05/2019 Average Number of Drinks Not on file 019 Frequency of Binge Drinking Not on file 01/09 Comments No Sex and Gender Information Value Date Recorded Sex Assigned at Not on file Legal Sex Female 7:08 PM CDT Gender Identity Not on file Sexual Orientation Not on file Last Filed Vital Signs Vital Sign Reading Time Taken Comments Blood Pressure 116/65 07/11/2024 10:43 AM TRANSPORTATION ASSISTANT Pulse 93 07/11/2024 10:43 AM TRANSPORTATION ASSISTANT Temperature 38.2 C (100.7 F) 07/11/2024 10:[address] Swanson aware Respiratory Rate 18 07/11/2024 10:4 3 AM TRANSPORTATION ASSISTANT Oxygen Saturation 99% 07/11/2024 10: 43 AM TRANSPORTATION ASSISTANT Inhaled Oxygen Concentration - - Weight 64.1 kg (141 lb 5 oz) 07/11/2024 8:53 AM TRANSPORTATION ASSISTANT Height 165.1 cm (5' 5) 07/11/2024 8:53 AM TRANSPORTATION ASSISTANT Body Mass Index 23.52 07/11/2024 8:53 AM TRANSPORTATION ASSISTANT Plan of Treatment Health Maintenance Due Date Last Done Comments Cervical Cancer Screening Pa p Smear (Age 30 to 64) Every 3 Years 1991 Annual Physical 1994 Hepatitis C 2009 Hepatitis B Vaccines (1 of 3 - 19+ 3-dose series) 2010 Pneumococcal Vaccine: Pediat rics (0 to 5 Years) and At-Risk Patients (6 to 49 Years) (1 of 2 - PCV) 2010 HPV Vaccines (1 - 3-dose SCD M series) 2018 Cervical Cancer Screening Pa p with HPV Testing (Age 30 to 64) Every 5 Years 2021 Cervical Cancer Screening with HPV 2021 COVID-19 Vaccine (1 - 2023-2 5 season) 2024 DTaP, Tdap and Td Vaccines ( 2 - Td or Tdap) 03/25/2026 03/25/2016 Meningococcal B Vaccine Aged Out No l onger eligible based on patient's age to complete this topic Meningococcal Vaccine Aged Out No dash savanah eligible based on patient's age to complete this topic RSV Immunizations Under 20 Months Aged Out No longer eligible based on patient's age to complete this topic Insurance Relatient Care Teams Special Procedure Tech Relationship Specialty Start Date End Date Claude Bangura MD [address] [place] [address] PCP - General FAMILY PRACTICE 07/11/24
--- OUTSIDE RECORDS SUMMARY | 2025-02-08 10:29 | XMS_ITS | Clinical Summary ---
Author Organization [facility] Care Team Providers Care Custom Studio Coordinator Name Role Phone Unavailable Primary Care Provider Unavailabl e Social History Tobacco Use Types Packs/Day Years Used Date Smoking Tobacco: Never Assessed Comments Unknown Sex and Gender Information Value Date Recorded Sex Assigned at Not on file Legal Sex Female 8:08 AM STATUE CARVER Gender Identity Not on file Sexual Orientation Not on file Plan of Treatment Health Maintenance Due Date Last Done Comments Hepatitis C Virus (HCV) Screening 1991 TdaP Immunization 1991 Human Papillomavirus (HPV) Immunization (1 - 3-dose series) 2006 Hepatitis B Immunization (1 of 3 - 19+ 3-dose series) 2010 Pap Smear 2012 Cervical Cancer Screening (CCS) 2021 HPV/Cotest 2021 SARS-COV-2 Immunization ( season) 2024 Influenza Immunization (#1) 2025 Respiratory Syncytial Virus (RSV) Immunization (Adult) (1 - 1-dose 75+ series) 2066 Meningococcal Immunization (ACWY) Aged Out No longer eligible based on patient's age to complete this topic Pneumococcal Immunization Combined Aged Out No longer eligible based on patient's age to complete this topic Rotavirus Immunization Aged Out No lo nger eligible based on patient's age to complete this topic
--- OUTSIDE RECORDS SUMMARY | 2025-02-08 10:29 | XMS_ITS | Encounter Summary ---
Author Organization [facility] Address [address] [place] [address] Care Team Providers Care Layer Out Name Role Phone Guero Bill DO Primary Care Provider Encounter Details Date Type Department Care Team (Late st Contact Info) Description 06/10/2017 Telephone [facility] [address] [place] [address] Ciara Garner, RT(R) Social History Tobacco Use Types Packs/Day Years Used Date Smoking Tobacco: Former Smokeless Tobacco: Never Alcohol Use Standard Drinks/Week Comments No 0 (1 standard drink = 0.6 oz pur e alcohol) Comments No Sex and Gender Information Value Date Recorded Sex Assigned at Not on file Legal Sex Female 9:58 AM CDT Gender Identity Not on file Sexual Orientation Not on file documented as of this encounter Functional Status * Is person deaf or have serious hearing difficulty? Answer Date of Assessment Author No 03/23/2016 11:50 AM DICKT Ericka Godinez RN * Is person blind or have serious difficulty seeing? Answer Date of Assessment Author No 03/23/2016 11:50 AM DICKT Ericka Godinez RN * Does person have serious difficulty walking/climbing stairs? Answer Date of Assessment Author No 03/23/2016 11:50 AM Ericka Tavera RN * Does person have difficulty dressing/bathing? Answer Date of Assessment Author No 03/23/2016 11:50 AM Ericka Tavera RN * Does person have difficulty doing errands alone? Answer Date of Assessment Author No 03/23/2016 11:50 AM Ericka Tavera RN documented as of this encounter Mental Status * Does person have difficulty concentrating/remembering/making decisions? Answer Entry Date Author No 03/23/2016 11:50 AM Ericka Tavera RN documented in this encounter Plan of Treatment Not on file documented as of this encounter Visit Diagnoses Not on filedocumented in this encounter Care Teams Layer Out Relationship Specialty Start Date End Date Guero Bill DO PCP - General 06/19/19 documented as of this encounter
[2025-02-08 10:35] VITALS: BP 117/81; PULSE 85; RESP 18; TEMP 36.8; O2SAT 100
--- NOTE | 2025-02-08 10:56 | ED_ITS ---
HPI - Wound/Laceration General Chief Complaint: Wound/Laceration Stated Complaint: finger laceration Time Seen by Provider: 02/08/25 10:56 Source: patient Mode of arrival: ambulatory Limitations: no limitations History of Present Illness HPI narrative: 34 yo F presents with laceration to L middle finger. Cut herself with knife around 7:30pm last night. Continues to have bleeding. Concerned she needs sutures. ROM and distal NV intact. All systems reviewed and negative except as noted above. Related Data Home Medications ?Medication ?Instructions ?Recorded ?Confirmed ?Last Taken ?Type fluticasone propionate 50 intranasal PRN 08/10/23 10/04/24 Unknown History mcg/actuation nasal spray,suspension Allergies Allergy/AdvReac Type Severity Reaction Status Date / Time psyllium Allergy Mild Hives / Verified 02/08/25 10:42 Red Face Sulfa (Sulfonamide AdvReac Mild N/V Verified 02/08/25 10:42 Antibiotics) trimethoprim AdvReac Mild N/V Verified 02/08/25 10:42 Review of Systems Review of Systems: [facility] Past Medical History Medical History (Updated 02/08/25 @ 11:40 by Noemí Rivera, BEENA) Encounter for removal of intrauterine contraceptive device Encounter for initial insertion of intrauterine contraceptive device Sinusitis, acute Ovarian cyst Abdominal pain Herniated disc 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 Manuel Linares Family History Family History Father Hypertension Diabetes mellitus Thyroid disorder Grandparent Cerebrovascular accident maternal grandfather Stomach cancer maternal grandmother Hypertension Heart problem Mother Depression Anxiety Daughter Asthma Grandparent Cerebrovascular accident Social History Social History Smoking status: Never smoker Alcohol intake: current Alcohol use details: Beer 1-3x a month Substance use: never Substance use type: does not use Lack of Transportation: No Lack of Food: Never True Current Housing: I Have Housing Concerned About Future Housing: No Difficulty Paying Gas/Electric Bills: No Difficulty Paying for Meds: No Currently Unemployed: No Education: Trade/Vocational Certificate Difficulty w/ Childcare or Family Care: No Living arrangements: other Additional living arrangements comments: Occupation/Education: occupation 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 There is no relevant family history pertinent to the presenting complaint. Exam Narrative: GENERAL: This is a well-nourished, well-developed patient, in no apparent distre ss. HEAD: normocephalic, atraumatic. EYES: PERRL. Sclera clear/white. Vision is grossly intact. EARS: External ears normal NOSE: External nose normal NECK: Neck supple, non-tender without lymphadenopathy, masses or thyromegaly. CARDIOVASCULAR: Regular rate and rhythm without murmurs, gallops, or rubs. RESPIRATORY: Clear to auscultation. Breath sounds equal bilaterally. No wheezes, rales, or rhonchi. SKIN: warm, Dry, intact with no suspicious lesions or rash, good texture and turgor. Flap laceration to distal aspect of left middle finger, small amount of bleeding noted. Approximately 2 cm diameter NEURO: awake, alert, and oriented to person, place and time. There were no obvious focal neurologic abnormalities. EXTREMITIES: No joint tenderness, effusion, or edema noted. Course Course Level of Care: Express Care Visit Vital Signs Vital signs: Vital Signs Temperature 36.8 C 02/08/25 10:35 Pulse Rate 85 02/08/25 10:35 Respiratory Rate 18 02/08/25 10:35 Blood Pressure 117/81 02/08/25 10:35 Pulse Oximetry 100 02/08/25 10:35 Oxygen Delivery Room Air 02/08/25 10:35 Temperature 36.8 C 02/08/25 10:35 Pulse Rate 85 02/08/25 10:35 Respiratory Rate 18 02/08/25 10:35 Blood Pressure 117/81 02/08/25 10:35 Pulse Oximetry 100 02/08/25 10:35 Oxygen Delivery Room Air 02/08/25 10:35 reviewed Procedures Laceration Laceration 1: Date: 02/08/25 Time: 11:40 Site: hand ( left middle finger) Side (If applicable): left Size (cm): 2 Description: flap Depth: simple, single layer Local Anesthetic: lidocaine 1% Amount of anesthesia used (mL): 3 Pre-repair: wound explored and irrigated ====== Skin Level ====== Skin layer closed with: nylon Size (cm): 5-0 Number of sutures: 4 Technique: simple, interrupted ====== Subcutaneous Layer ====== ====== Muscle Layer ====== ====== Tendon Layer ====== MDM - Wound/Laceration MDM Narrative Medical decision making narrative: laceration to left middle finger repaired with sutures. due to wound not being repaired for over 12 hours from initial injury prescribing antibiotic. Range of motion and distal neurovascularly intact pre and post suturing. Differential Diagnosis Differential diagnosis: Likely laceration, abrasion and avulsion of skin Discharge Plan Discharge Clinical Impression: Laceration of left middle finger Qualifiers: Encounter type: initial encounter Damage to nail status: without damage Foreign body presence: without foreign body Qualified Code(s): S61.213A - Laceration without foreign body of left middle finger without damage to nail, initial encounter Patient Disposition: Home Condition: Stable Instructions: Antibiotic Form, Finger Laceration (ED) Additional Instructions: Follow-up in 7-10 days for suture removal. Because laceration was repaired over 12 hours after initial injury,I am prescribing an antibiotic to prevent wound infection. Take antibiotic as prescribed until gone. Take Tylenol or ibuprofen to treat pain. Take as directed on packaging. Keep clean and dry. Patient Language: Telugu Prescriptions: New cephalexin 500 mg capsule 500 mg PO BID 7 Days Qty: 14 0RF No Action fluticasone propionate 50 mcg/actuation spray,suspension intranasal PRN loratadine 10 mg tablet 10 mg PO DAILY Qty: 30 0RF Rx Instructions: NEEDS APPOINTMENT FOR FURTHER REFILLS albuterol sulfate 90 mcg/actuation HFA aerosol inhaler 2 puff inhalation Q4H PRN (Reason: shortness of breath or wheezing) Qty: 6.7 0RF sumatriptan succinate 100 mg tablet See Rx Instructions PO .COMPLEX 30 Days Qty: 9 5RF Rx Instructions: take 1 tab at onset of headache; if no relief may repeat 1 tab in 2hr; max = 2 tabs/24 hrs PO omeprazole 40 mg capsule,delayed release(DR/EC) See Rx Instructions .ROUTE .COMPLEX Qty: 180 1RF Dose Instruction: TAKE 1 CAPSULE BY MOUTH DAILY Rx Instructions: TAKE 1 CAPSULE BY MOUTH BID valacyclovir 500 mg tablet 500 mg PO DAILY Qty: 135 1RF Rx Instructions: take 1 tablet by mouth twice a day for outbreaks ondansetron HCl 4 mg tablet 4 mg PO Q8H Qty: 30 2RF uuvwjpvpki-bwqizticxewlb-itdy 50-325-40 mg tablet 1 tablet PO DAILY PRN (Reason: migraine headache) Qty: 30 0RF naproxen 500 mg tablet See Rx Instructions .ROUTE .COMPLEX Qty: 60 0RF Dose Instruction: TAKE 1 TABLET BY MOUTH TWICE DAILY NEEDED FOR PAIN Rx Instructions: TAKE 1 TABLET BY MOUTH TWICE DAILY NEEDED FOR PAIN dextroamphetamine-amphetamine [Adderall] 10 mg tablet 10 mg PO .qafternoon PRN (Reason: add) Qty: 30 0RF hydrocodone-acetaminophen 5-325 mg tablet 1 tablet PO DAILY PRN (Reason: pain) Qty: 30 0RF alprazolam 1 mg tablet 1 mg PO DAILY Qty: 30 0RF dextroamphetamine-amphetamine [Adderall] 20 mg tablet 20 mg PO DAILY Qty: 30 0RF Follow-up/Referrals: Claude Bangura MD [Primary Care Provider] - Time of Disposition: 11:41
[2025-02-08] MEDS: ACETAMINOPHEN 500 MG TABLET 1000 MG PO (11:03)
[2025-02-08] MEDS: ONDANSETRON HCL ODT 4 MG TABLET SUBLINGUAL (11:04)
[2025-02-08] MEDS: LIDOCAINE 1% LOCAL INJ 2 ML AMPUL INFILTRATE (11:04)
== END 2025-02-08 11:44 | disposition home or self-care (01) ==
PROVIDERS: Emergency Provider Nurse Practitioner Family; PCP Family Medicine
DX: S61.213A Laceration without foreign body of left middle finger without damage to nail, initial encounter (principal); W26.0XXA Contact with knife, initial encounter; K21.9 Gastro-esophageal reflux disease without esophagitis; J45.909 Unspecified asthma, uncomplicated; Z86.16 Personal history of COVID-19; F98.8 Other specified behavioral and emotional disorders with onset usually occurring in childhood and adolescence; F41.9 Anxiety disorder, unspecified
CPT/HCPCS: 12001; 99213; A9270; G0463; J2003

== ENCOUNTER 2025-03-06 11:02 | Outpatient (CLI) | payer OTHER, SELFPAY ==
--- OUTSIDE RECORDS SUMMARY | 2025-03-06 11:08 | XMS_ITS | Encounter Summary ---
Author Organization [facility] Health Address [address] [place] [address] Care Team Providers Care Straddle Truck Operator Name Role Phone Guero Bill DO Primary Care Provider Encounter Details Date Type Department Care Team (Late st Contact Info) Description 06/10/2017 Telephone [facility] [address] [place] [address] Ciara Garner, RT(R) Social History [...] on filedocumented in this encounter Care Teams Straddle Truck Operator Relationship Specialty Start Date End Date Guero Bill DO PCP - General 06/19/19 documented as of this encounter
--- OUTSIDE RECORDS SUMMARY | 2025-03-06 11:08 | XMS_ITS | Clinical Summary ---
Author Organization [facility] Address [address] [place] [address] Care Team Providers Care Offset Plate Maker Name Role Phone Guero Bill DO Primary Care Provider Source Comments [facility],non-owned Affiliates and Associated Physician Practices is amultiple site organization consisting of ambulatory clinics and hospital sitesin [place], [place], [place] and [place]. This disclosure is being madepursuant to the Care Everywhere program and may not contain all information available regarding this patient. Last updated 18.[facility] Allergies Active Allergy Reactions Criticality Noted Date [...] 05/05/2016 Supervision of high risk in third critical access hospital 03/16/2016 History of delivery 01/14/2016 state Immunizations [...] Comments Blood Pressure 126/82 06/08/2017 12:47 PM BENCH PRECISION ASSEMBLER Pulse 107 06/08/2017 12:47 PM BENCH PRECISION ASSEMBLER Temperature 36.8 C (98.2 F) 06/08/2017 12:47 PM BENCH PRECISION ASSEMBLER Respiratory Rate 18 06/08/2017 12:47 PM BENCH PRECISION ASSEMBLER Oxygen Saturation 100% 06/08/2017 12:47 PM BENCH PRECISION ASSEMBLER Inhaled Oxygen Concentration - - Weight 63.5 kg (140 lb) 06/08/2017 12:47 PM BENCH PRECISION ASSEMBLER Height 165.1 cm (5' 5) 06/08/2017 12:47 PM BENCH PRECISION ASSEMBLER Body Mass Index 23.3 06/08/2017 12:47 PM BENCH PRECISION ASSEMBLER Plan of Treatment Health Maintenance Due Date [...] patient's age to complete this topic Insurance [employer] [facility] Advance Directives * Full Code (Latest Code Status on File) Date Activated Date Inactivated Comments 03/23/2016 11:12 AM 03/26/2016 1:33 PM * Full Code Date Activated Date Inactivated Comments 03/23/2016 10:09 AM 03/23/2016 11:12 AM Care Teams Offset Plate Maker Relationship Specialty Start Date End Date Guero Bill DO PCP - General 06/19/19
--- OUTSIDE RECORDS SUMMARY | 2025-03-06 11:08 | XMS_ITS | Clinical Summary ---
Author Organization [facility] Address [address] [place] [address] Care Team Providers Care Corporate Compliance Director Name Role Phone Claude Bangura MD Primary Care Provider [phone] Allergies Active Allergy Reactions Criticality Noted Date [...] Problems Problem Noted Date Diagnosed Date state ([facility]) 02/05/2019 Herpes genitalis 06/08/2017 (vaginal after ) ([facility]) Encounter for visit ([facility]) 016 Supervision of high risk pre gnancy in third trimester ([facility]) 03/16/2016 History of delivery 01/14/2016 Immunizations Immunization [...] Comments Blood Pressure 116/65 07/11/2024 10:43 AM GOLD FRAME ASSEMBLER Pulse 93 07/11/2024 10:43 AM GOLD FRAME ASSEMBLER Temperature 38.2 C (100.7 F) 07/11/2024 10:43 AM GOLD FRAME ASSEMBLER Dr. Swanson aware Respiratory Rate 18 07/11/2024 10:4 3 AM GOLD FRAME ASSEMBLER Oxygen Saturation 99% 07/11/2024 10: 43 AM GOLD FRAME ASSEMBLER Inhaled Oxygen Concentration - - Weight 64.1 kg (141 lb 5 oz) 07/11/2024 8:53 AM GOLD FRAME ASSEMBLER Height 165.1 cm (5' 5) 07/11/2024 8:53 AM GOLD FRAME ASSEMBLER Body Mass Index 23.52 07/11/2024 8:53 AM GOLD FRAME ASSEMBLER Plan of Treatment Health Maintenance Due [...] patient's age to complete this topic Insurance [email or web address] Care Teams Corporate Compliance Director Relationship Specialty Start Date End Date Claude Bangura MD [address] [place] [address] PCP - General FAMILY PRACTICE 07/11/24
--- OUTSIDE RECORDS SUMMARY | 2025-03-06 11:08 | XMS_ITS | Clinical Summary ---
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
[2025-03-13 02:07] LABS: Amphetamine Conf, MS, UR 1946 ng/mL (Cutoff=500); Butalbital Conf, MS, UR 870 ng/mL (Cutoff=150); Cocaine (Metab.), Urine Negative ng/mL (Cutoff=300)
== END 2025-03-06 11:03 | disposition home or self-care (01) ==
LOC: ANHGOSHLAB 11:03
PROVIDERS: PCP Family Medicine; Visit Provider Family Medicine
DX: M54.2 Cervicalgia (principal); F98.8 Other specified behavioral and emotional disorders with onset usually occurring in childhood and adolescence; G43.111 Migraine with aura, intractable, with status migrainosus; J45.20 Mild intermittent asthma, uncomplicated; K21.9 Gastro-esophageal reflux disease without esophagitis; K58.1 Irritable bowel syndrome with constipation; M54.50 Low back pain, unspecified; R74.8 Abnormal levels of other serum enzymes
CPT/HCPCS: 80307

== ENCOUNTER 2025-06-04 06:02 | Day surgery (SDC) | payer OTHER, SELFPAY ==
[2025-05-28 10:20] VITALS: BMI 22.4
[2025-06-04] VITALS (8 sets, daily range): BP systolic 108–130; BP diastolic 68–86; PULSE 65–109; RESP 12–16; TEMP 36.4–36.8; O2SAT 98–100
--- OUTSIDE RECORDS SUMMARY | 2025-06-04 06:06 | XMS_ITS | Clinical Summary ---
Author Organization [facility] Care Team Providers Care Appian Developer Name Role Phone Unavailable Primary Care Provider Unavailabl e Social History Tobacco Use Types Packs/Day Years Used Date Smoking Tobacco: Never Assessed Comments Unknown Sex and Gender Information Value Date Recorded Sex Assigned at Not on file Legal Sex Female 8:08 AM DAY CARE HOME MOTHER Gender Identity Not on file Sexual Orientation Not on file Plan of Treatment Health Maintenance Due Date Last Done Comments Hepatitis C Virus (HCV) Screening 1991 TdaP Immunization 1991 Hepatitis B Immunization (1 of 3 - 19+ 3-dose series) 2010 Pap Smear 2012 Human Papillomavirus (HPV) Immunization (1 - 3-dose SCDM series) 2018 Cervical Cancer Screening (CCS) 2021 HPV/Cotest 2021 Influenza Immunization (#1) 2025 SARS-COV-2 Immunization ( season) 2025 Respiratory Syncytial Virus (RSV) Immunization (Adult) [...]
--- OUTSIDE RECORDS SUMMARY | 2025-06-04 06:06 | XMS_ITS | Clinical Summary ---
Author Organization [facility] Address [address] [place] [address] Care Team Providers Care Web User Experience Strategist Name Role Phone Claude Bangura MD Primary Care Provider [phone] Allergies Active Allergy Reactions Criticality Noted Date [...] Problems Problem Noted Date Diagnosed Date state 02/05/2019 Herpes genitalis 06/08/2017 (vaginal after ) 05/05/2016 Encounter for visit 05/05/2016 Supervision of high risk in third [facility] 03/16/2016 History of delivery 01/14/2016 Immunizations Immunization [...] Comments Blood Pressure 116/65 07/11/2024 10:43 AM CONCRETE HANDLER Pulse 93 07/11/2024 10:43 AM CONCRETE HANDLER Temperature 38.2 C (100.7 F) 07/11/2024 10:[address] Swanson aware Respiratory Rate 18 07/11/2024 10:4 3 AM CONCRETE HANDLER Oxygen Saturation 99% 07/11/2024 10: 43 AM CONCRETE HANDLER Inhaled Oxygen Concentration - - Weight 64.1 kg (141 lb 5 oz) 07/11/2024 8:53 AM CONCRETE HANDLER Height 165.1 cm (5' 5) 07/11/2024 8:53 AM CONCRETE HANDLER Body Mass Index 23.52 07/11/2024 8:53 AM CONCRETE HANDLER Plan of Treatment Health Maintenance Due Date [...] Cancer Screening with HPV 2021 COVID-19 Vaccine ( - 2024-2 6 season) 2025 Influenza Adult (#1) 2025 DTaP, Tdap and Td Vaccines ( 2 - Td or Tdap) 03/25/2026 03/25/2016 Hepatitis A Vaccines Aged Out No long er eligible based on patient's age to complete this topic Meningococcal B Vaccine Aged Out No l onger eligible based on patient's age to complete this topic Meningococcal Vaccine Aged Out No dash savanah eligible based on patient's age to complete this topic RSV Immunizations Under 20 Months Aged Out No longer eligible based on patient's age to complete this topic Insurance [employer] Care Teams Web User Experience Strategist Relationship Specialty Start Date End Date Claude Bangura MD [address] [place] [address] PCP - General FAMILY PRACTICE 07/11/24
--- OUTSIDE RECORDS SUMMARY | 2025-06-04 06:06 | XMS_ITS | Encounter Summary ---
Author Organization [facility] Health Address [address] [place] [address] Care Team Providers Care Airport Control Operator Name Role Phone Guero Bill DO Primary Care Provider [phone] Encounter Details Date Type Department Care Team (Late st Contact Info) Description 06/10/2017 Telephone [facility] [address] [place] [address] Ciara Garner, RT(R) Social History [...] on filedocumented in this encounter Care Teams Airport Control Operator Relationship Specialty Start Date End Date Guero Bill DO PCP - General 06/19/19 documented as of this encounter
--- OUTSIDE RECORDS SUMMARY | 2025-06-04 06:06 | XMS_ITS | Clinical Summary ---
Author Organization [facility] Address [address] [place] [address] Care Team Providers Care Legal Support Manager Name Role Phone Guero Bill DO Primary Care Provider Source Comments [facility],non-owned Affiliates and Associated Physician Practices is amultiple site organization consisting of ambulatory clinics and hospital sitesin [place], [place], [place] and [place]. This disclosure is being madepursuant to the Care Everywhere program and may not contain all information available regarding this patient. Last updated 18.[facility] Allergies Active Allergy Reactions Criticality Noted Date [...] 05/05/2016 Supervision of high risk in third [facility] 03/16/2016 History of delivery 01/14/2016 state Immunizations [...] Comments Blood Pressure 126/82 06/08/2017 12:47 PM CONTOUR BAND SAW OPERATOR VERTICAL Pulse 107 06/08/2017 12:47 PM CONTOUR BAND SAW OPERATOR VERTICAL Temperature 36.8 C (98.2 F) 06/08/2017 12:47 PM CONTOUR BAND SAW OPERATOR VERTICAL Respiratory Rate 18 06/08/2017 12:47 PM CONTOUR BAND SAW OPERATOR VERTICAL Oxygen Saturation 100% 06/08/2017 12:47 PM CONTOUR BAND SAW OPERATOR VERTICAL Inhaled Oxygen Concentration - - Weight 63.5 kg (140 lb) 06/08/2017 12:47 PM CONTOUR BAND SAW OPERATOR VERTICAL Height 165.1 cm (5' 5) 06/08/2017 12:47 PM CONTOUR BAND SAW OPERATOR VERTICAL Body Mass Index 23.3 06/08/2017 12:47 PM CONTOUR BAND SAW OPERATOR VERTICAL Plan of Treatment Health Maintenance Due Date Last Done Comments HIV SCREENING 2006 HEPATITIS C SCREENING 06/02/2009 HEPATITIS B VACCINE (1 of 3 - 19+ 3-dose series) 2010 PAP SMEAR 2012 HPV VACCINE (1 - 3-dose SCDM series) 2018 Cervical Cancer Screening 2021 PAP with HPV 2021 DEPRESSION SCREENING 07/10/2024 COVID-19 VACCINE (1 - 2024-2 6 season) 2025 INFLUENZA VACCINE (#1) 2025 DTAP/TDAP/TD VACCINES (2 [...] patient's age to complete this topic Insurance [employer] [place] [id number] [employer] [facility] [employer] [facility] Advance Directives * Full Code (Latest Code Status on File) Date Activated Date Inactivated Comments 03/23/2016 11:12 AM 03/26/2016 1:33 PM * Full Code Date Activated Date Inactivated Comments 03/23/2016 10:09 AM 03/23/2016 11:12 AM Care Teams Legal Support Manager Relationship Specialty Start Date End Date Guero Bill DO PCP - General 06/19/19
[2025-06-04] MEDS: LACTATED RINGERS 1,000 ML 30 ML IV CONT ×2 (06:34→09:39)
[2025-06-04] MEDS: TRANEXAMIC ACID 1,000 MG/10 ML AMPUL 1000 MG IV PUSH (06:34)
--- NOTE | 2025-06-04 07:04 | WPDANESEPPF ---
Anes - Initial Pre Proc Eval Procedure: Operation Date: 06/04/25 07:30 Proposed Procedures p Bilateral Breast Augmentation Mammoplasty - Manuel Bear MD Date/Time: 06/04/25 07:04 Surgeon: Manuel Bear MD Pre Op Diagnosis: micromastia Patient Data Age: 34 Gender: F Height: 1.65 m Weight: 63.25 kg Last Vital Signs Temp 98.3 F 06/04/25 06:18 Pulse 69 06/04/25 06:18 Resp 15 06/04/25 06:18 BP 108/68 06/04/25 06:18 Pulse Ox 100 06/04/25 06:18 O2 Del Method Room Air 06/04/25 06:18 Allergies Allergy/AdvReac Type Severity Reaction Status Date / Time psyllium Allergy Mild Hives / Verified 06/04/25 06:16 Red Face Sulfa (Sulfonamide AdvReac Mild N/V Verified 06/04/25 06:16 Antibiotics) trimethoprim AdvReac Mild N/V Verified 06/04/25 06:16 Home Medications ?Medication ?Instructions ?Recorded ?Confirmed ?Type fluticasone propionate 50 2 spray intranasal Q12H PRN 08/10/23 06/04/25 History mcg/actuation nasal allergy symptoms spray,suspension sumatriptan succinate 100 mg tablet See Rx Instructions PO .COMPLEX 30 04/17/24 06/04/25 Rx days #9 tabs valacyclovir 500 mg tablet 500 mg PO DAILY #135 tabs 12/09/24 06/04/25 Rx ondansetron HCl 4 mg tablet 4 mg PO Q8H #30 tabs 02/18/25 06/04/25 Rx albuterol sulfate 90 mcg/actuation 2 puff inhalation Q4H PRN 03/19/25 06/04/25 Rx aerosol inhaler shortness of breath or wheezing #6.7 grams omeprazole 40 mg capsule,delayed See Rx Instructions .Route 04/02/25 06/04/25 Rx release .COMPLEX #180 caps loratadine 10 mg tablet 10 mg PO DAILY #90 tabs 04/16/25 06/04/25 Rx naproxen 500 mg tablet See Rx Instructions .Route 05/01/25 06/04/25 Rx .COMPLEX #60 tabs norethindrone 1 mg-ethinyl 1 tablet PO DAILY #84 tabs 05/13/25 06/04/25 Rx estradiol 20 mcg (21)-iron 75 mg (7) tablet (Junel FE 07/29 (28)) alprazolam 1 mg tablet 1 mg PO DAILY #30 tabs 05/15/25 06/04/25 Rx jrhcygyejq-wcxhusvtlkvdw-ytotscai 1 tablet PO DAILY PRN migraine 05/15/25 06/04/25 Rx 50 mg-325 mg-40 mg tablet headache #30 tabs dextroamphetamine-amphetamine 10 10 mg PO .qafternoon PRN add #30 05/15/25 06/04/25 Rx mg tablet (Adderall) tabs dextroamphetamine-amphetamine 20 20 mg PO DAILY #30 tabs 05/15/25 06/04/25 Rx mg tablet (Adderall) hydrocodone 5 mg-acetaminophen 325 1 tablet PO DAILY PRN pain #30 tabs 05/15/25 06/04/25 Rx mg tablet Patient hx anesthesia problems: post op nausea/vomiting Family hx anesthesia problems: none Results Review: All pre-operative results and documents have been reviewed as part of the pre-operative evaluation. 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 Manuel Linares Family History Family History Father Hypertension Diabetes mellitus Thyroid disorder Grandparent Cerebrovascular accident maternal grandfather Stomach cancer maternal grandmother Hypertension Heart problem Mother Depression Anxiety Daughter Asthma Grandparent Cerebrovascular accident Social History Social History Smoking status: Never smoker Second hand tobacco smoke exposure: No Alcohol intake: current Drinks per week: 0 Alcohol use details: SPECIAL OCCASION Substance use: never Substance use type: does not use Lack of Transportation: No Lack of Food: Never True Current Housing: I Have Housing Concerned About Future Housing: No Difficulty Paying Gas/Electric Bills: No Difficulty Paying for Meds: No Currently Unemployed: No Education: Trade/Vocational Certificate Difficulty w/ Childcare or Family Care: No Living arrangements: alone Additional living arrangements comments: Occupation/Education: occupation 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 Gender identity (if verbalized by the patient): Female Sexual Orientation (if Verbalized by the Patient): Straight or Heterosexual Spiritual care concerns: No Agree to blood products: Yes Anes - Eval Final PreProcedure Day of Procedure 06/04/25 07:04 Heart: regular rate and rhythm Lungs: clear to auscultation Airway: Mallampati scale class II Neurological: alert and oriented Last oral intake: >/= 8 hours ASA classification: II Anesthetic plan: proceed Anesthesia type and monitoring: general Results Review: All pre-operative results and documents have been reviewed as part of the pre-operative evaluation. Informed Consent: The patient's anesthetic plan and its attendant risks and benefits were discussed with the patient/family/POA. Questions were solicited and answers provided to the satisfaction of the patient/family/POA.
[2025-06-04] MEDS: SCOPOLAMINE 1 MG PATCH 1.5 PATCH TRANSDERM (07:05)
--- NOTE | 2025-06-04 08:33 | P.OP_ITS ---
Procedure Note - Detailed Date of Procedure 06/04/25 Pre-op Diagnosis micromastia Post-op Diagnosis Same Procedure Performed Bilateral augmentation mammaplasty Surgeon Manuel Bear MD Anesthesia General Findings Bilateral Ana Laura Subramanian Cohesive 360cc Right: REF# [id number] SN [id number] Left: REF# [id number] SN [id number] Description of Procedure She is here today for bilateral breast augmentation. Previously and again today the risks, benefits, alternatives were discussed in extensive detail. I wanted her to be very realistic about the risks involved as well as expectations. We discussed aftercare and what to monitor for. Made sure answered all of her q uestions to her satisfaction today and consent was obtained. Marked in the preoperative holding area with their verification. The patient was taken to the operating room placed supine on the operating table. Anesthesia was provided by anesthesiology. A surgical time-out was taken. We cleansed the skin and 1% lidocaine and 0.25% Marcaine with epinephrine was used anesthetize as a field block. She was prepped and draped in a standard sterile fashion. Tegaderm nipple Mast were placed. A 15 blade used to make an incision along the inframammary fold. Dissection was continued at 45 degree angle until the chest wall as identified. I incised the pectoralis major along its inferior border and completely released the inferior border leaving the medial border intact. I created a subpectoral pocket in the appropriate dimensions based on our preoperative planning for the implant. I then copiously irrigated with saline solution and verified a strict hemostasis. Next the use a triple antibiotic and Betadine containing solution to irrigate the pocket. I washed my gloves with the triple antibiotic and Betadine solution. We washed the implant immediately upon opening it with this solution and only opened it when we needed it. I used implant funnel and no-touch technique. The implant was introduced into the pocket using the funnel. Having verified positioning of the implant this was closed using 2-0 PDS followed by 3-0 Monocryl in a running subcuticular 4-0 Monocryl followed by tissue glue. Fluffs and surgical bra were placed. Patient was awoke and taken to PACU without difficulty. All instrument sponge counts were correct at the end of the case. Estimated Blood Loss 25 Drains No Packing No Pathology None sent Complications No immediate complications Condition Stable Disposition PACU
--- NOTE | 2025-06-04 08:33 | WPDHPUPDATE1 ---
History and Physical Update Update Date/Time: 06/04/25 08:33 History and Physical has been reviewed, including an updated exam of the patient. There are NO changes in the patient's condition. Risks, benefits, and alternatives have been discussed and questions answered. Patient agrees to proceed with procedure.
[2025-06-04] MEDS: ceFAZolin SODIUM 2 GM/20 ML SW SYRINGE IV PUSH (08:39)
[2025-06-04] MEDS: LIDO 1%/EPINEPHRINE 1:100,000 20 ML VIAL 40 ML (08:55)
[2025-06-04] MEDS: NACL 0.9% IRRIG POUR BOTTLE 900 ML, GENTAMICIN SULFATE INJ 160 MG, ceFAZolin 2 GM, POVI... IRRIGATION (09:27)
[2025-06-04] MEDS: fentaNYL CITRATE INJ (*CRX) 100 MCG/2 ML VIAL 25 MCG IV PUSH ×4 (10:01→10:15)
[2025-06-04] MEDS: oxyCODONE HCL (*CRX) 5 MG TAB IR PO (10:40)
== END 2025-06-04 10:58 | disposition home or self-care (01) ==
PROVIDERS: PCP Family Medicine; Visit Provider Surgery Plastic and Reconstructive Surgery
PROC: (CPT 19325; principal; 2025-06-04 07:30)
DX: Z41.1 Encounter for cosmetic surgery (principal); N64.82 Hypoplasia of breast
CPT/HCPCS: 19325; J3290